=== PATIENT | male | born 1955 | race Caucasian/White ===

== ENCOUNTER 2021-09-19 13:29 | Outpatient (CLI) | payer OTHER, SELFPAY ==
[2021-09-19 14:04] LABS: Anion Gap 9 mmol/L (8-16); Blood Urea Nitrogen 35 mg/dL (9-20); Calcium 9.1 mg/dL (8.4-10.2); Carbon Dioxide 30 mmol/L (22-30); Chloride 102 mmol/L (98-107); Estimated Glomerular Filt Rate 50; Glucose 113 mg/dL (65-110); Potassium 3.9 mmol/L (3.4-5.0); Sodium 141 mmol/L (137-145)
== END 2021-09-19 13:30 | disposition home or self-care (01) ==
LOC: ANHSURGERY 13:34
PROVIDERS: Anesthesiology; PCP Pediatrics; Visit Provider Urology
DX: R97.20 Elevated prostate specific antigen [PSA] (principal); Z79.899 Other long term (current) drug therapy; Z01.818 Encounter for other preprocedural examination
CPT/HCPCS: 36415; 80048; 87086

== ENCOUNTER → 2021-09-23 00:05 | Outpatient (CLI) | payer OTHER, SELFPAY ==
[2021-09-23 11:46] LABS: SARS-CoV-2 RNA PCR Negative
== END ==
PROVIDERS: PCP Pediatrics; Visit Provider Urology
DX: Z01.812 Encounter for preprocedural laboratory examination (principal); Z20.822 Contact with and (suspected) exposure to COVID-19
CPT/HCPCS: C9803; U0003; U0005

== ENCOUNTER 2021-09-26 01:41 | Day surgery (SDC) | payer OTHER, SELFPAY ==
[2021-09-18 09:32] VITALS: BMI 38.0
--- NOTE | 2021-09-18 09:46 | PC.NURSE ---
Report to the Outpatient Waiting Room, entrance under the green pavilion located off [facility], at time _1215_ on date _09/26/21_. OR Time: _2:15_. - You and your visitor will be asked a series of questions to screen for COVID 19 for your protection. - A mask is required within the hospital. One visitor will be allowed to accompany the patient into the hospital. Patients visitor will be instructed to remain with patient at all times or leave the building. We will allow the visitor to come back to the postoperative area when patient is ready. Preoperative COVID Testing Requirements: COVID TEST SCHEDULED FOR 09/23/21 @ 0920 If not COVID vaccinated a COVID test must be conducted within 72 hours of surgery and patient is asked to isolate self from time of testing until procedure. You will go to the [facility] for your COVID testing. The [facility] site is located at the corner of [address] [facility]. You will only be called if COVID results are positive and your surgeon may reschedule your elective surgery date. Patients may have clear liquids (water, carbonated beverages, clear teas, apple juice) until 3 hours prior to surgery with a maximum of 20 ounces. - No food from midnight until time of surgery - Infants may have breast milk until 4 hours before surgery, formula 6 hours prior to surgery. - Children will be allowed to drink immediately following surgery. If applicable, please bring a bottle or sippy cup to assist with drinking. Juice, water, soda, and popsicles are readily available. For infants on formula, please bring formula the day of surgery. Pacifiers are allowed. Take the following medications with a SIP of water the morning of surgery: __NONE__ Medications to discontinue per ANESTHESIA - _ALL VITAMINS AND SUPPLEMENTS 3 DAYS PRIOR TO SURGERY, Date to take last dose on 09/22/21 Please no deodorant, or body powder the day of surgery. No jewelry (including any body piercings) or valuables the day of surgery, leave them at home. Please take a shower or bath the night before, or the morning of, surgery with an antibacterial soap. Wear comfortable, loose fitting clothing. - Jewelry must be removed prior to entering the operating room. Rings and piercings that are not removed may be cut off. - The hospital will not accept responsibility for valuables. - Please leave all valuables, including medications, at home the day of surgery. If you are going home after surgery, a licensed marine engine driver must drive you home. - NO public transportation without another adult. - We recommend that an adult stay with you for 24 hours following discharge. - We also recommend that you do not drive, make important decision, drink alcoholic beverages, or take any drugs that were not prescribed by your health care provider for at least 24 hours after your discharge time. One visitor will be allowed to accompany the patient into the hospital. Patients visitor will be instructed to remain with patient at all times or leave the building. We will allow the visitor to come back to the postoperative area when patient is ready. Follow any additional instructions given to you from your surgeon. Telephone instructions given to __PT & SPOUSE and asked if any additional questions and then verbalized understanding. Patient advised to call surgeon office or pre surgery nurse liaison [phone] if any additional questions.
--- NOTE | 2021-09-25 14:07 | P.PNAN_ITS ---
Anes - Initial Pre Proc Eval Procedure: Operation Date: 09/26/21 13:45 Proposed Procedures p Transrectal Ultrasound Fusion Guided Prostate Biopsy - Esteban Bolton MD Date/Time: 09/25/21 14:07 Surgeon: Esteban Bolton MD Pre Op Diagnosis: elvated PSA Patient Data Age: 66 Gender: M Height: 1.73 m Weight: 113.63 kg Allergies Allergy/AdvReac Type Severity Reaction Status Date / Time NSAIDS (Non-Steroidal Allergy RENAL Verified 09/26/21 12:15 Anti-Inflamma FAILURE allopurinol AdvReac UNABLE TO Verified 09/26/21 12:15 TAKE D/T AMPICILLIN ALLERGY ampicillin AdvReac Hives Verified 09/26/21 12:15 Home Medications Medication Instructions Recorded Confirmed Type cholecalciferol (vitamin D3) 50 mcg PO HS 09/18/21 09/26/21 History esomeprazole magnesium 40 mg QAM 09/18/21 09/26/21 History febuxostat [Uloric] 80 mg PO QA 09/18/21 09/26/21 History hydrochlorothiazide 50 mg QAM 09/18/21 09/26/21 History irbesartan 300 mg HS 09/18/21 09/26/21 History magnesium 250 mg PO HS 09/18/21 09/26/21 History Patient hx anesthesia problems: none Family hx anesthesia problems: none Results Review: All pre-operative results and documents have been reviewed as part of the pre-operative evaluation. [facility] Past Medical History Medical History (Updated 09/25/21 @ 14:09 by Vini Gunter MD) Back pain Gout HTN (hypertension) Obesity Osteoarthritis Social History Social History Smoking status: Never smoker Second hand tobacco smoke exposure: No Alcohol intake: current Alcohol use details: STATES MAYBE 1 DRINK/MONTH Substance use: never Substance use type: does not use Living arrangements: with family Spiritual care concerns: No Anes - Eval Final PreProcedure Day of Procedure 09/25/21 14:08 Patient weight: obese Heart: regular rate and rhythm Lungs: clear to auscultation and normal air movement Airway: Mallampati scale class II Neurological: alert and oriented Last oral intake: >/= 8 hours ASA classification: III Emergent: no Anesthetic plan: proceed Anesthesia type and monitoring: general GIVS and LMA Results Review: All pre-operative results and documents have been reviewed as part of the pre-operative evaluation. Informed Consent: The patient's anesthetic plan and its attendant risks and benefits were discussed with the patient/family/POA. Questions were solicited and answers provided to the satisfaction of the patient/family/POA.
[2021-09-26] VITALS (8 sets, daily range): BP systolic 108–139; BP diastolic 72–83; PULSE 57–74; RESP 15–20; TEMP 36.1–37; O2SAT 96–100
[2021-09-26] MEDS: LACTATED RINGERS 1,000 ML 30 ML IV CONT (12:34)
--- NOTE | 2021-09-26 13:37 | WPDHPUPDATE1 ---
History and Physical Update Update Date/Time: 09/26/21 13:37 History and Physical has been reviewed, including an updated exam of the patient. There are NO changes in the patient's condition. Risks, benefits, and alternatives have been discussed and questions answered. Patient agrees to proceed with procedure. Proceed with uronav ultrasound and prostate biopsy
[2021-09-26] MEDS: levoFLOXacin 500 MG/D5W 100 ML 500 MG/100 ML BAG 100 MG IVPB (13:58)
--- NOTE | 2021-09-26 14:30 | W.PM.PROC2 ---
Procedure Note - Detailed Date of Procedure 09/26/21 Pre-op Diagnosis elvated PSA Post-op Diagnosis Same Procedure Performed Uronav us and biopsy Surgeon Esteban Bolton MD Anesthesia General Description of Procedure Patient is taken the operative suite correctly identified. Once anesthesia was obtained was placed in lateral decubitus position. Transrectal ultrasound was then performed in the image was fused to the MRI. Patient had 3 regions of interest. I took 3 biopsies from each region. We then did our standard 12 core biopsy. Patient tolerated procedure well without complications taken recovery stable condition. Instructed call for the results in 1 weeks time. Estimated Blood Loss 0 Drains No Packing No Pathology Yes Complications No immediate complications Condition Stable Disposition PACU
[2021-09-26] MEDS: fentaNYL CITRATE INJ (*CRX) 100 MCG/2 ML VIAL 25 MCG IV PUSH ×2 (14:58→15:05)
[2021-09-26] MEDS: oxyCODONE HCL (*CRX) 5 MG TAB IR PO (15:54)
== END 2021-09-26 16:45 | disposition home or self-care (01) ==
PROVIDERS: PCP Pediatrics; Visit Provider Urology
PROC: (CPT 55700; principal; 2021-09-26 13:45)
DX: R97.20 Elevated prostate specific antigen [PSA] (principal); I10 Essential (primary) hypertension; M10.9 Gout, unspecified; E66.9 Obesity, unspecified; Z68.36 Body mass index [BMI] 36.0-36.9, adult
CPT/HCPCS: 55700; 76872; A9270; G0416; J1956; J2405; J2704; J3010; J7120